=== PATIENT | male | born 1970 | race Caucasian/White ===

== ENCOUNTER 2022-12-23 10:57 | Emergency (ER) | payer OTHER ==
[~2022-12-23] VITALS: Ht 190.5 cm; Wt 90.9 kg
[2022-12-23 11:00] VITALS: BP 148/77
[2022-12-23] MEDS ORDERED: DOXYCYCLINE 100MG CAPSULE PO STA (11:31)
[2022-12-23] MEDS ORDERED: TETanus/Pertussis (Acell)/Diphther VAC/PF (Tdap-Adult) 0.5ml syringe IMVAC ONE (11:35)
== END 2022-12-23 11:56 | disposition home or self-care (01) ==
LOC: ER 10:57
DX: S30.861A Insect bite (nonvenomous) of abdominal wall, initial encounter (principal); Z88.2 Allergy status to sulfonamides; W57.XXXA Bitten or stung by nonvenomous insect and other nonvenomous arthropods, initial encounter; Y93.89 Activity, other specified; Y92.89 Other specified places as the place of occurrence of the external cause; Y99.8 Other external cause status
CPT/HCPCS: 99283